=== PATIENT | female | born 2000 | race Caucasian/White ===

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

== ENCOUNTER 2023-02-22 08:05 | Emergency (ER) | payer MEDICAID, OTHER ==
[~2023-02-22] VITALS: Ht 152.4 cm; Wt 77.3 kg
[2023-02-22 08:12] VITALS: BP 141/96; PULSE 98; RESP 18; TEMP 97.7
[2023-02-22 08:22] LABS: COVID AG,FIA SOURCE NASOPHARYNGEAL
[2023-02-22 08:45] LABS: RAPID GROUP A STREP NEGATIVE (NEGATIVE)
[2023-02-22] MEDS ORDERED: KETOROLAC TROMETHAMINE 30 MG/ML VIAL IM ONE (08:45)
[2023-02-22] MEDS ORDERED: AMOX TR/POT CLAV 875 MG/125 MG TABLET PO ONE (08:45)
[2023-02-22 08:52] LABS: INFLUENZA TYPE A NEGATIVE FOR TYPE A (NEGATIVE); INFLUENZA TYPE B NEGATIVE FOR TYPE B (NEGATIVE)
[2023-02-22] MEDS ORDERED: AMOX1TAB16 PO (09:20)
== END 2023-02-22 10:49 | disposition home or self-care (01) ==
LOC: EMS 08:07
DX: J03.90 Acute tonsillitis, unspecified (principal); G43.909 Migraine, unspecified, not intractable, without status migrainosus; Z20.822 Contact with and (suspected) exposure to COVID-19
CPT/HCPCS: 99283; 87426; 87430; 87804; 96372; J1885